=== PATIENT | male | born 1965 | race Caucasian/White ===

== ENCOUNTER 2021-11-08 13:00 | Outpatient (NON) | payer OTHER, SELFPAY | END 2021-11-09 08:05 | disposition home or self-care (01) | PROVIDERS: PCP Internal Medicine; Visit Provider Internal Medicine Gastroenterology | DX: R93.89 Abnormal findings on diagnostic imaging of other specified body structures (principal) | CPT/HCPCS: 88305 ==

== ENCOUNTER 2021-11-08 13:17 | Day surgery (SDC) | payer OTHER, SELFPAY ==
[2021-11-01 10:25] VITALS: BMI 23.1
[2021-11-04 10:00] VITALS: BMI 22.5
[2021-11-08 13:20] VITALS: BP 149/76; PULSE 92; RESP 20; TEMP 36.8; O2SAT 100
[2021-11-08 13:50] LABS: Glucose Point of Care 156 mg/dl (65-105)
--- NOTE | 2021-11-08 13:51 | SUR.PREOP ---
1315; CALLED TO WAITING ROOM TO ASSESS PT. PT SLUMPED OVER IN CHAIR. AxOX3. PT C/O LT FLANK PAIN AT 10/10. STATES I FEEL LIKE I'M GOING TO PASS OUT . STATES THIS HAS BEEN GOING ON FOR 3 HOURS. SISTER WITH PT. NOTIFIED KADE NG RN DIRECTOR. PT PLACED IN W/C AND TAKEN TO PREOP. ASSISTED TO LAY ON STRETCHER.
--- NOTE | 2021-11-08 13:56 | SUR.PREOP ---
1340; DR MARRERO NOTIFIED OF PT C/O EXTREME PAIN. LAST DOSE OF VICODIN WAS [address] MARRERO REQUEST[address] SCAN REPORT. WILL CALL DR HOYOS'S OFFICE FOR REPORT. 1347; RECEIVED REPORT. WAITING FOR DR MARRERO TO SEE REPORT, CURRENTLY IN ENDOSCOPY. SISTER AT BEDSIDE. PT ALERT AND AWAKE.
--- NOTE | 2021-11-08 14:10 | SUR.PREOP ---
1410; DR MARRERO IN ROOM SPEAKING TO PT. SISTER AT BEDSIDE.
--- NOTE | 2021-11-08 14:17 | SUR.PREOP ---
WILL CONTINUE WITH COLONOSCOPY
--- NOTE | 2021-11-08 14:18 | P.PNAN_ITS ---
Anes - Initial Pre Proc Eval Procedure: Operation Date: 11/08/21 14:15 Proposed Procedures p Diagnostic Colonoscopy - Roman Perry MD Date/Time: 11/08/21 14:18 Surgeon: Roman Perry MD Pre Op Diagnosis: Abnormal CT Scan Patient Data Age: 56 Gender: M Height: 1.73 m Weight: 67.132 kg Last Vital Signs Temp 36.8 C 11/08/21 13:20 Pulse 92 11/08/21 13:20 Resp 20 11/08/21 13:20 BP 149/76 H 11/08/21 13:20 Pulse Ox 100 11/08/21 13:20 O2 Del Method Room Air 11/08/21 13:20 Allergies Allergy/AdvReac Type Severity Reaction Status Date / Time codeine AdvReac Unknown stomach Verified 11/08/21 13:50 upset Home Medications Medication Instructions Recorded Confirmed Type albuterol sulfate 90 mcg/actuation 2 puff inhalation Q6H 11/04/21 11/08/21 History aerosol inhaler gabapentin 300 mg capsule 900 mg PO TID 11/04/21 11/08/21 History hydrocodone 7.5 mg-acetaminophen 1 tablet PO TID 11/04/21 11/08/21 History 325 mg tablet insulin aspart U-100 100 unit/mL See Rx Instructions .Route .COMPLEX 11/04/21 11/08/21 History (3 mL) subcutaneous pen (Novolog Flexpen U-100 Insulin aspart) Laboratory Tests 11/08/21 13:40 POC Capillary Glucose 156 mg/dl H mg/dl (65-105) Patient hx anesthesia problems: none Family hx anesthesia problems: none Results Review: All pre-operative results and documents have been reviewed as part of the pre- operative evaluation. [facility] Past Medical History Medical History (Updated 11/08/21 @ 14:19 by Morris Bustamante MD) Asthma Diabetes Family History Family History Father Family history of diabetes mellitus in first degree relative Family history of heart disease in male family member before age 55 Other Asthma Cerebrovascular accident Diabetes mellitus Family history of arthritis Family history of attention deficit hyperactivity disorder (ADHD) Hypertension Social History Social History Smoking packs per day: 1 Smoking cigarettes per day: 20.0 Years smoked: 35 Smoking pack-years: 35.00 Smoking status: Current every day smoker Tobacco type: cigarettes Alcohol intake: never Living arrangements: with family Spiritual care concerns: No Anes - Eval Final PreProcedure Day of Procedure 11/08/21 14:18 Patient weight: normal Heart: regular rate and rhythm Lungs: clear to auscultation Airway: Mallampati scale class II Neurological: alert and oriented Last oral intake: >/= 8 hours ASA classification: III Emergent: no Anesthetic plan: proceed Anesthesia type and monitoring: general GIVS and standard monitoring Results Review: All pre-operative results and documents have been reviewed as part of the pre- operative evaluation. Informed Consent: The patient's anesthetic plan and its attendant risks and benefits were discussed with the patient/family/POA. Questions were solicited and answers provided to the satisfaction of the patient/family/POA.
--- NOTE | 2021-11-08 14:31 | SUR.PREOP ---
PT STATES PAIN COMES AND GOES. WILL BE A STEADY PAIN THEN GETS AN INTENSE STABBING PAIN TO LT FLANKE
[2021-11-08] MEDS: LACTATED RINGERS 1,000 ML 150 ML IV CONT (14:32)
--- NOTE | 2021-11-08 14:33 | SUR.PREOP ---
PT WATCHING TV
[2021-11-08 15:27] VITALS: BP 123/76; PULSE 86; RESP 16; O2SAT 99
--- NOTE | 2021-11-08 15:35 | SUR.PHASEII ---
PT REMAINS SLEEPING, AROUSES TO VERBAL STIMULI, TOUCH. LAYING ON LT SIDE. SISTER AT BEDSIDE.
[2021-11-08 15:37] VITALS: BP 129/78; PULSE 82; RESP 16; O2SAT 98
--- NOTE | 2021-11-08 15:43 | WPDANESPN ---
Anes - Prog Note Post-Op Date/Time: 11/08/21 15:43 Cardiovascular status: normal Respiratory status: normal Airway patency: baseline Mental status: baseline Post-Op hydration status: normal Vital Signs: Last Vital Signs Temp 36.8 C 11/08/21 13:20 Pulse 86 11/08/21 15:27 Resp 16 11/08/21 15:27 BP 123/76 11/08/21 15:27 Pulse Ox 99 11/08/21 15:27 O2 Del Method Room Air 11/08/21 15:27 Pain Score (VAS): 3/10 I/O: Intake & Output 11/07/21 11/08/21 11/08/21 23:59 07:59 15:59 Intake Total 500 Balance 500 11/08/21 13:40 POC Capillary Glucose 156 H Patient Feedback: Patient satisfied with anesthetic care.
[2021-11-08 15:48] VITALS: BP 155/94; PULSE 88; RESP 18; O2SAT 98
--- NOTE | 2021-11-08 16:27 | WPDGICN ---
Assessment and Plan Assessment and plan (1) Abnormal CT scan, gastrointestinal tract: Code(s): R93.3 - Abnormal findings on diagnostic imaging of other parts of digestive tract Status: Acute Assessment and Plan: Patient has an abnormal CT scan raising question of cecal colon mass for this reason colonoscopy will be performed. Additionally as left flank pain is uncertain how this correlates with this discomfort. Further recommendations will be given after endoscopy. GI Consult Note Consult date/time: 11/08/21 16:27 Reason for consult: Abnormal CT scan HPI: Ankit Kemp is a 56 year old male presents for colonoscopy on referral from Dr. Krishna Leon. Patient reports severe left flank pain. He underwent a CT scan as an outpatient review revealed a cecal mass in also in the ascending colon. Patient referred for rather urgent colonoscopy. He states his bowel habits are fairly regular. He denies any blood in his stools. Notes a vague right lower quadrant discomfort but rather severe left flank discomfort. Patient referred for evaluation of abnormality seen on colonoscopy. He has no known family history of colon rectal disease. Review of Systems Review of Systems: Review of systems noncontributory. [facility] Past Medical History Medical History (Updated 11/08/21 @ 16:30 by Roman Perry MD) Asthma Diabetes Family History Family History Father Family history of diabetes mellitus in first degree relative Family history of heart disease in male family member before age 55 Other Asthma Cerebrovascular accident Diabetes mellitus Family history of arthritis Family history of attention deficit hyperactivity disorder (ADHD) Hypertension Social History Social History Smoking packs per day: 1 Smoking cigarettes per day: 20.0 Years smoked: 35 Smoking pack-years: 35.00 Smoking status: Current every day smoker Tobacco type: cigarettes Alcohol intake: never Spiritual care concerns: No Meds Home Medications and Allergies Home Medications Medication Instructions Recorded Confirmed Type albuterol sulfate 90 mcg/actuation 2 puff inhalation Q6H 11/04/21 11/08/21 History aerosol inhaler gabapentin 300 mg capsule 900 mg PO TID 11/04/21 11/08/21 History hydrocodone 7.5 mg-acetaminophen 1 tablet PO TID 11/04/21 11/08/21 History 325 mg tablet insulin aspart U-100 100 unit/mL See Rx Instructions .Route .COMPLEX 11/04/21 11/08/21 History (3 mL) subcutaneous pen (Novolog Flexpen U-100 Insulin aspart) Allergies Allergy/AdvReac Type Severity Reaction Status Date / Time codeine AdvReac Unknown stomach Verified 11/08/21 13:50 upset Vital Signs Vital Signs - 24 hr 11/08/21 13:20 11/08/21 15:27 11/08/21 15:37 Temperature 98.3 F Pulse Rate 92 86 82 Respiratory Rate 20 16 16 Blood Pressure 149/76 H 123/76 129/78 Pulse Oximetry 100 99 98 Oxygen Delivery Room Air Room Air Room Air Exam Narrative: Physical exam reveals patient to be alert. Vital signs stable. HEENT exam unremarkable. Patient anicteric. Lungs are clear. Heart without murmur. Abdomen bowel sounds present soft nontender no obvious masses or organomegaly. Digital external rectal exam normal.
--- NOTE | 2021-11-08 16:30 | HP_ITS ---
This report was recreated on November 10, 2021. Original report was signed by Dr. Roman Perry on November 08, 2021 at 16:30. Assessment and Plan Assessment and plan (1) Abnormal CT scan, gastrointestinal tract: Code(s): R93.3 - Abnormal findings on diagnostic imaging of other parts of digestive tract Status: Acute Assessment and Plan: Patient has an abnormal CT scan raising question of cecal colon mass for this reason colonoscopy will be performed. Additionally as left flank pain is uncertain how this correlates with this discomfort. Further recommendations will be given after endoscopy. GI Consult Note Consult date/time: 11/08/21 16:27 Reason for consult: Abnormal CT scan HPI: Ankit Kemp is a 56 year old male presents for colonoscopy on referral from Dr. Krishna Leon. Patient reports severe left flank pain. He underwent a CT scan as an outpatient review revealed a cecal mass in also in the ascending colon. Patient referred for rather urgent colonoscopy. He states his bowel habits are fairly regular. He denies any blood in his stools. Notes a vague right lower quadrant discomfort but rather severe left flank discomfort. Patient referred for evaluation of abnormality seen on colonoscopy. He has no known family history of colon rectal disease. Review of Systems Review of Systems: Review of systems noncontributory. [facility] Past Medical History Medical History (Updated 11/08/21 @ 16:30 by Roman Perry MD) Asthma Diabetes Family History Family History Father Family history of diabetes mellitus in first degree relative Family history of heart disease in male family member before age 55 Other Asthma Cerebrovascular accident Diabetes mellitus Family history of arthritis Family history of attention deficit hyperactivity disorder (ADHD) Hypertension Social History Social History Smoking packs per day: 1 Smoking cigarettes per day: 20.0 Years smoked: 35 Smoking pack-years: 35.00 Smoking status: Current every day smoker Tobacco type: cigarettes Alcohol intake: never Spiritual care concerns: No Meds Home Medications and Allergies Home Medications Medication Instructions Recorded Confirmed Type albuterol sulfate 90 mcg/actuation 2 puff inhalation Q6H 11/04/21 11/08/21 History aerosol inhaler gabapentin 300 mg capsule 900 mg PO TID 11/04/21 11/08/21 History hydrocodone 7.5 mg-acetaminophen 1 tablet PO TID 11/04/21 11/08/21 History 325 mg tablet insulin aspart U-100 100 unit/mL See Rx Instructions .Route .COMPLEX 11/04/21 11/08/21 History (3 mL) subcutaneous pen (Novolog Flexpen U-100 Insulin aspart) Allergies Allergy/AdvReac Type Severity Reaction Status Date / Time codeine AdvReac Unknown stomach Verified 11/08/21 13:50 upset Vital Signs Vital Signs - 24 hr 11/08/21 13:20 11/08/21 15:27 11/08/21 15:37 Temperature 98.3 F Pulse Rate 92 86 82 Respiratory Rate 20 16 16 Blood Pressure 149/76 H 123/76 129/78 Pulse Oximetry 100 99 98 Oxygen Delivery Room Air Room Air Room Air Exam Narrative: Physical exam reveals patient to be alert. Vital signs stable. HEENT exam unremarkable. Patient anicteric. Lungs are clear. Heart without murmur. Abdomen bowel sounds present soft nontender no obvious masses or organomegaly. Digital external rectal exam normal.
--- NOTE | 2021-11-08 16:32 | SUR.PHASEII ---
1545; PT AWAKE AND ALERT. STATES NO PAIN RIGHT NOW, BUT I KNOW IT WILL RETURN . PT TOOK A PAIN PILL FROM HIS OWN BOTTLE HE BROUGHT FROM HOME. INSTRUCTED PT AND SISTER IF PAIN PERSISTS HE SHOULD REPORT TO ED.
== END 2021-11-08 16:25 | disposition home or self-care (01) ==
PROVIDERS: PCP Internal Medicine; Visit Provider Internal Medicine Gastroenterology
PROC: 0DJD8ZZ Inspection of Lower Intestinal Tract, Via Natural or Artificial Opening Endoscopic (ICD-10-PCS; CPT 45378; principal; 2021-11-08 14:15)
DX: R93.3 Abnormal findings on diagnostic imaging of other parts of digestive tract (principal)
CPT/HCPCS: 45380

== ENCOUNTER 2021-11-21 07:51 | Outpatient (CLI) | payer OTHER, SELFPAY ==
--- NOTE | 2021-11-21 08:55 | ECG_ITS ---
Measurements Intervals [place] Rate: 84 P: 75 VA: 154 QRS: 55 QRSD: 96 T: 64 QT: 345 QTc: 409 Interpretive Statements SINUS RHYTHM NORMAL ELECTROCARDIOGRAM NO PREVIOUS ECG AVAILABLE FOR COMPARISON Electronically Signed On 11-21-2021 14:31:34 CDT by Tong Miller M.D.
[2021-11-21 09:42] LABS: Anion Gap 7 mmol/L (8-16); Blood Urea Nitrogen 13 mg/dL (9-20); Calcium 9.1 mg/dL (8.4-10.2); Carbon Dioxide 27 mmol/L (22-30); Chloride 101 mmol/L (98-107); Estimated Glomerular Filt Rate > 60; Glucose 177 mg/dL (65-110); Potassium 4.3 mmol/L (3.4-5.0); Sodium 135 mmol/L (137-145)
== END 2021-11-21 07:52 | disposition home or self-care (01) ==
LOC: ANHSURGERY 07:55
PROVIDERS: Anesthesiology; PCP Internal Medicine; Visit Provider Surgery
DX: Z01.818 Encounter for other preprocedural examination (principal); C18.0 Malignant neoplasm of cecum; E10.9 Type 1 diabetes mellitus without complications
CPT/HCPCS: 36415; 80048; 86850; 86900; 86901; 93005

== ENCOUNTER 2021-11-25 17:28 | Inpatient (IN) | payer OTHER, SELFPAY ==
[2021-11-21 08:00] VITALS: BMI 24.0
--- NOTE | 2021-11-21 08:29 | PC.NURSE ---
Report to the Outpatient Waiting Room, entrance under the green pavilion located off [facility], at time __1000 on date _11/25/21 . OR Time: _1200 . - You and your visitor will be asked a series of questions to screen for COVID 19 for your protection. - Only one visitor is allowed at this time. - The patient visitor is requested to leave or wait in car when not with patient. - A mask is required within the hospital. Patients may have clear liquids (water, carbonated beverages, clear teas, apple juice) until 3 hours prior to surgery with a maximum of 20 ounces. - No food from midnight until time of surgery - Infants may have breast milk until 4 hours before surgery, infant formula 6 hours prior to surgery. - Children will be allowed to drink immediately following surgery. If applicable, please bring a bottle or sippy cup to assist with drinking. Juice, water, soda, and popsicles are readily available. For infants on formula, please bring formula the day of surgery. Pacifiers are allowed. Take the following medications with a SIP of water the morning of surgery: ___PAIN PILL IF NEEDED Medications to discontinue per physician ___NONE Date to take last dose Please no make-up, nail japanese, hairspray, perfume, deodorant, or body powder the day of surgery. No jewelry (including any body piercings) or valuables the day of surgery, leave them at home. Please take a shower or bath the night before, or the morning of, surgery with an antibacterial soap. Wear comfortable, loose fitting clothing. Children are encouraged to wear pajamas. - Jewelry must be removed prior to entering the operating room. Rings and piercings that are not removed may be cut off. - The hospital will not accept responsibility for valuables. - Please leave all valuables, including medications, at home the day of surgery.HIBICLENS SHOWER DAY BEFORE SURGERY AND MORNING OF SURGERY BOWEL PREP/ENSURE BUNDLE PACK PER DR FAITH If you are going home after surgery, a licensed peg driver must drive you home. - NO public transportation without another adult. - We recommend that an adult stay with you for 24 hours following discharge. - We also recommend that you do not drive, make important decision, drink alcoholic beverages, or take any drugs that were not prescribed by your health care provider for at least 24 hours after your discharge time. For Pediatric surgeries, we recommend two adults accompany the child home (only one inside the building at this time). Follow any additional instructions given to you from your surgeon. If you or anyone in your household have experienced Covid symptoms in the past week, please notify your surgeon or the nurse liaison at the phone number below for possible testing. VERBAL AND WRITTEN instructions given to __PATIENT and asked if any additional questions and then verbalized understanding. Patient advised to call surgeon office or pre surgery nurse liaison [phone] if any additional questions.
[2021-11-21 08:47] VITALS: BP 128/74; PULSE 85; RESP 18; TEMP 36.9; O2SAT 99
--- NOTE | 2021-11-24 13:41 | WPDANESEPPF ---
Anes - Initial Pre Proc Eval Procedure: Operation Date: 11/25/21 12:00 Proposed Procedures p Laparoscopic Right Hemicolectomy, Davinci Assisted - Tyrell Garcia DO Date/Time: 11/24/21 13:41 Surgeon: Tyrell Garcia DO Pre Op Diagnosis: cecal CA Patient Data Age: 56 Gender: M Height: 1.73 m Weight: 71.9 kg Last Vital Signs Temp 36.9 C 11/21/21 08:47 Pulse 85 11/21/21 08:47 Resp 18 11/21/21 08:47 BP 128/74 11/21/21 08:47 Pulse Ox 99 11/21/21 08:47 O2 Del Method Room Air 11/21/21 08:47 Allergies Allergy/AdvReac Type Severity Reaction Status Date / Time codeine AdvReac Unknown stomach Verified 11/25/21 10:06 upset Home Medications Medication Instructions Recorded Confirmed Type albuterol sulfate 90 mcg/actuation 2 puff inhalation PRN PRN 11/04/21 11/25/21 History aerosol inhaler Shortness Of Breath hydrocodone 7.5 mg-acetaminophen 1 tablet PO QID 11/04/21 11/25/21 History 325 mg tablet insulin aspart U-100 100 unit/mL See Rx Instructions .Route .COMPLEX 11/04/21 11/25/21 History (3 mL) subcutaneous pen (Novolog Flexpen U-100 Insulin aspart) insulin glargine 100 unit/mL 14 - 20 unit subcut BID 11/09/21 11/25/21 History subcutaneous solution (Lantus U-100 Insulin) erythromycin 500 mg tablet See Rx Instructions .Route 11/14/21 11/25/21 Rx .COMPLEX #6 tabs neomycin 500 mg tablet See Rx Instructions .Route 11/14/21 11/25/21 Rx .COMPLEX #6 tabs rosuvastatin 10 mg tablet 10 mg PO DAILY 11/21/21 11/25/21 History Patient hx anesthesia problems: none Family hx anesthesia problems: none Results Review: All pre-operative results and documents have been reviewed as part of the pre-operative evaluation. [facility] Past Medical History Medical History (Updated 11/24/21 @ 13:42 by Bernard Guerrero DO) Asthma Cecal cancer Chronic pain Diabetes type 1 High cholesterol Surgical History Surgical History History of thumb surgery S/P carpal tunnel release S/P laparoscopic cholecystectomy Family History Family History Father Family history of diabetes mellitus in first degree relative Family history of heart disease in male family member before age 55 Other Asthma Cerebrovascular accident Diabetes mellitus Family history of arthritis Family history of attention deficit hyperactivity disorder (ADHD) Hypertension Social History Social History Smoking packs per day: 1 Smoking cigarettes per day: 20.0 Years smoked: 35 Smoking pack-years: 35.00 Smoking status: Current every day smoker Tobacco type: cigarettes Alcohol intake: current Substance use type: marijuana Last use: 11/20/21 HELPS WITH HIS ANXIETY/PAIN Living arrangements: alone Spiritual care concerns: No Anes - Eval Final PreProcedure Day of Procedure 11/24/21 13:41 Patient weight: normal Heart: regular rate and rhythm Lungs: clear to auscultation Airway: Mallampati scale class II Neurological: alert and oriented Last oral intake: >/= 8 hours ASA classification: III Emergent: no Anesthetic plan: proceed Anesthesia type and monitoring: general GIVS and standard monitoring Results Review: All pre-operative results and documents have been reviewed as part of the pre-operative evaluation. Informed Consent: The patient's anesthetic plan and its attendant risks and benefits were discussed with the patient/family/POA. Questions were solicited and answers provided to the satisfaction of the patient/family/POA.
[2021-11-25] VITALS (9 sets, daily range): BP systolic 130–164; BP diastolic 73–87; PULSE 73–117; RESP 12–20; TEMP 36.1–36.4; O2SAT 97–100
[2021-11-25 10:31] LABS: Glucose Point of Care 74 mg/dl (65-105)
[2021-11-25] MEDS: ACETAMINOPHEN 500 MG TABLET 1000 MG PO (10:34)
[2021-11-25] MEDS: LACTATED RINGERS 1,000 ML 30 ML IV CONT ×2 (10:34→16:04)
[2021-11-25] MEDS: KETOROLAC 15 MG/ML VIAL (*BKC) IV PUSH (10:35)
--- NOTE | 2021-11-25 11:37 | WPDHPUPDATE1 ---
History and Physical Update Update Date/Time: 11/25/21 11:37 History and Physical has been reviewed, including an updated exam of the patient. There are NO changes in the patient's condition. Risks, benefits, and alternatives have been discussed and questions answered. Patient agrees to proceed with procedure.
[2021-11-25] MEDS: ceFAZolin 2 GM/D5W 50 ML 2 GM/50 ML BAG IVPB (12:07)
[2021-11-25] MEDS: fentaNYL CITRATE INJ (*CRX) 100 MCG/2 ML VIAL 25 MCG IV PUSH ×6 (16:20→17:07)
--- NOTE | 2021-11-25 16:22 | W.PM.PROC2 ---
Procedure Note - Detailed Date of Procedure 11/25/21 Pre-op Diagnosis Cecal Cancer Post-op Diagnosis Same Procedure Performed Laparoscopic right hemicolectomy with [id number] ileocolic anastomosis, da Sharee assisted Surgeon Tyrell Garcia, Anesthesia General and Local (Exparel) Indications This is a 56-year-old man who presents with adenocarcinoma of the cecum. He was experiencing some lower abdominal pain and had a CT abdomen/ pelvis done at an outside facility which showed evidence of a mass in the cecum. He then underwent colonoscopy by Dr. Perry on 11/08/2021. A mass was identified and biopsied and these biopsy showed evidence of adenocarcinoma. His preoperative CEA level was 61.8. He had no evidence of distant metastases on the CT. Discussions were made with the patient about treatment options and decision was made to proceed with a robotic assisted laparoscopic right hemicolectomy. Findings Robotic assisted laparoscopic right hemicolectomy was performed. The mass was identified in the cecum. There was no evidence of distant metastases on careful examination. A high ligation of the ileocolic pedicle was performed. After mobilizing the entire ascending colon I then resected the right colon and performed a [id number] isoperistaltic intracorporeal anastomosis. Indocyanine green was used to assess perfusion to the bowel both before resection and after anastomosis. The bowel appeared healthy and viable and the anastomosis appeared widely patent. The right colon was extracted through a low Pfannenstiel incision using a small Nate wound protector. Description of Procedure Procedure as well as risks, benefits, and alternatives were discussed with the patient. Written consent was obtained and placed in chart prior to procedure. Patient was brought back to surgical suite. He was placed supine on operating table. Time-out was done to confirm patient and procedure. He was then intubated by the anesthesia department. His abdomen was prepped and draped in sterile fashion using chlorhexidine prep. An 8 mm incision was made in the left upper quadrant and a 5 mm Optiview trocar was advanced through the abdominal layers under direct visualization. Once inside the abdominal cavity, carbon dioxide insufflation was used to create a pneumoperitoneum. Camera was inserted in the abdomen was inspected. The patient was placed in 5 degree Trendelenburg and 10? rotated left an 8 mm incision was made in the suprapubic region in midline and an 8 mm trocar was inserted under direct visualization another 8 mm incision was made in the umbilical region just inferior into the left of the umbilicus and an 8 mm trocar was inserted under direct visualization. A 12 mm incision was made in the left lateral abdomen and a 12 mm trocar was inserted under direct visualization. An 8 mm incision was made in the left lower quadrant and an 8 mm assist port was placed under direct visualization. The 5 mm port was then removed and exchanged for an 8 mm port. The robotic arms were then brought up to the patient's bedside and secured to the ports. The camera and instruments were then inserted. I then moved over to the robotic console and took control of the camera and instruments. Thorough inspection was made around the abdominal cavity. The omentum was then reflected cephalad over the transverse colon. The area near the ileocecal valve was grasped and retracted anterior and laterally to tent up the ileocolic pedicle. Scissors with electrocautery were then used to perform the medial to lateral dissection. I entered into the avascular plane just inferior to the ileocolic pedicle and carefully dissected cephalad to identify the duodenum. Once the duodenum was identified and then continued sweeping the retroperitoneal structures posteriorly and then isolated the ileocolic pedicle. A high ligation of the ileocolic vessels was then performed using the vessel sealer. Sri
--- NOTE | 2021-11-25 17:13 | SUR.PHASEI ---
1710 - tarsha tamayo on pt.
--- NOTE | 2021-11-25 17:35 | ADMGEN ---
This patient, Ankit Kemp, was admitted to Medical Room 248-01. Patient/family oriented to hospital policies and general routines including ID bracelet, bed and alarms, visiting hours, pain management, procedures, bathroom and other care routines, personal items, smoking policy, room service/diet, and visiting hours. Information on how to activate the Rapid Response Team has been discussed. Patient/Family are encouraged to report perceived risks to care and to ask questions if they do not understand what they are told or what they should do.
[2021-11-25] MEDS: LACTATED RINGERS 1,000 ML 100 ML IV CONT (18:03)
[2021-11-25] MEDS: oxyCODONE HCL (*CRX) 5 MG TAB IR 10 MG PO ×2 (18:08→22:18)
[2021-11-25 18:18] LABS: Glucose Point of Care 193 mg/dl (65-105)
--- NOTE | 2021-11-25 19:30 | WPDCN ---
Assessment and Plan Assessment and plan (1) Adenocarcinoma of cecum: Code(s): C18.0 - Malignant neoplasm of cecum Status: Acute Assessment and Plan: Postoperative day 0 status post right hemicolectomy with [id number]-lx-cole ileocolic anastomosis. Wound care, pain control, and DVT prophylaxis deferred to Dr. Garcia. (2) Insulin dependent type 2 diabetes mellitus: Code(s): E11.9 - Type 2 diabetes mellitus without complications; Z79.4 - terminal system operator (current) use of insulin Status: Acute Assessment and Plan: Continue basal insulin at a reduced dose while NPO. Initiate sliding scale insulin, Accu-Cheks, and hypoglycemic protocol. Recheck hemoglobin A1c. (3) Tobacco abuse: Code(s): Z72.0 - Tobacco use Status: Acute Assessment and Plan: Smoking cessation is encouraged. He declines the need for nicotine patch at this time. Plan Thank you for allowing us to participate in this patient's care. Please do not hesitate to contact us with any questions. Supervising physician for this medical consultation is Dr. Tong Sidhu. HPI Data of Consult Date/Time: 11/25/21 19:30 Requesting Physician: Tyrell Garcia DO Consult Narrative Reason for consult: Postoperative medical management. Narrative: This is a pleasant 56-year-old male smoker with insulin dependent diabetes mellitus, dyslipidemia, and a recent diagnosis of adenocarcinoma of the cecum whom the hospitalist service has been consulted for help managing the patients medical conditions postoperatively. He was found to have evidence of a cecal mass on CT of the abdomen and pelvis last month done at an outside facility for evaluation of lower back and abdominal pain. He underwent colonoscopy on 11/08/[address] Perry at which time he was found to have a malignant appearing mass in the cecum. Biopsy confirmed moderately differentiated adenocarcinoma and he is now status post laparoscopic right hemicolectomy with [id number] anastamosis, da Sharee assisted per Dr. Garcia. At the time my evaluation he is resting comfortably does have some discomfort at the incisional sites. His main complaint is that of the need to urinate however he has only been able to produce a very small amount of urine. He does not typically have issues urinating. He denies fever, chills, sweats, chest pain, shortness of breath, nausea, and vomiting. Review of Systems Review of Systems: Twelve systems were reviewed. He has lost about 40 lb unintentionally over the last 1 year. No fever, chills, or sweats. No recent cold or flu symptoms. No sick contacts. No chest or pleuritic pain. No shortness of breath. He has not noticed any bright red blood or dark stools. No history of venous thromboembolism. He admits that his diabetes is not well controlled with his most recent A1c of around 13%. No blurry vision, polydipsia, or polyuria. Except as documented, all other systems were reviewed and are negative. [facility] Past Medical History Medical History (Updated 11/25/21 @ 23:18 by Etelvina Vegas PA-C) Adenocarcinoma of cecum Asthma Chronic pain Dyslipidemia Insulin dependent type 2 diabetes mellitus Surgical History Surgical History (Updated 11/25/21 @ 23:15 by Etelvina Vegas PA-C) History of carpal tunnel release History of laparoscopic cholecystectomy (05/2012) History of right hemicolectomy (11/25/21) Laparoscopic right hemicolectomy with [id number] ileocolic anastomosis per Dr. Garcai for adenocarcinoma of the cecum. History of thumb surgery Family History Family History Father Family history of diabetes mellitus in first degree relative Family history of heart disease in male family member before age 55 Other Asthma Cerebrovascular accident Diabetes mellitus Family history of arthritis Family history of attention deficit hyperactivity disorder (ADHD) Hypertens
[2021-11-25] MEDS: oxyCODONE HCL (*CRX) 5 MG TAB IR PO (19:57)
[2021-11-25 22:32] LABS: Glucose Point of Care 293 mg/dl (65-105)
[2021-11-25 22:32] LABS: Glucose Point of Care 245 mg/dl (65-105)
[2021-11-25] MEDS: INSULIN ASPART (*BKC) 100 UNITS/ML 6 UNITS SUB-Q (23:25)
[2021-11-25] MEDS: INSULIN GLARGINE (*BKC) 100 UNITS/ML 15 UNITS SUB-Q (23:42)
[2021-11-26 00:32] VITALS: BP 116/75; PULSE 103; RESP 20; TEMP 36.8; O2SAT 98
[2021-11-26 00:55] LABS: Glucose Point of Care 283 mg/dl (65-105)
[2021-11-26 00:55] LABS: Glucose Point of Care 269 mg/dl (65-105)
[2021-11-26] MEDS: oxyCODONE HCL (*CRX) 5 MG TAB IR PO (01:28)
--- NOTE | 2021-11-26 01:36 | PC.NURSE ---
PT C/O LEFT SHOULDER PAIN PROVIDED PT WITH ICE PACK UPON REQUEST.
[2021-11-26] MEDS: oxyCODONE HCL (*CRX) 5 MG TAB IR 10 MG PO (03:56)
[2021-11-26] MEDS: LACTATED RINGERS 1,000 ML 100 ML IV CONT (03:56)
[2021-11-26 05:45] VITALS: BP 118/82; PULSE 106; RESP 20; TEMP 36.2; O2SAT 98
[2021-11-26 06:12] LABS: Glucose Point of Care 253 mg/dl (65-105)
[2021-11-26] MEDS: HYDROmorphone HCL INJ (*CRX) 1 MG/ML SYR IV PUSH ×5 (06:13→22:42)
[2021-11-26 06:23] LABS: Basophils Percent Auto 0.2 % (0.2-1.2); Hematocrit 29.5 % (42.0-52.0); Immature Granulocyte Absolute 0.05 K/mm3 (0.00-0.031); Immature Granulocyte Percent A 0.4 % (0-0.5); Lymphocytes Absolute Auto 1.29 K/mm3 (0.9-3.2); Lymphocytes Percent Auto 10.3 % (18.3-44.2); Mean Corpuscular HGB Conc 30.5 g/dl (32-36); Mean Corpuscular Hemoglobin 24.5 pg (26-34); Mean Corpuscular Volume 80.2 fl (80-100); Mean Platelet Volume 8.8 fl (7.4-10.4); Monocytes Percent Auto 7.7 % (2.6-8.5); Neutrophils Absolute Auto 10.2 K/mm3 (1.3-6.7); Neutrophils Percent Auto 81.4 % (45.5-73.1); Platelet Count Result 499 k/mm3 (150-375); Red Blood Count 3.68 M/mm3 (4.6-6.20); Red Cell Distribution Width 14.7 % (11.5-14.5); White Blood Count 12.5 K/mm3 (4.5-10.0)
[2021-11-26 06:40] LABS: Hemoglobin A1C 9.4 % (<5.7)
[2021-11-26 06:41] LABS: Alanine Aminotransferase 14 U/L (6-50); Albumin Level 3.3 g/dL (3.5-5.1); Alkaline Phosphatase 73 U/L (38-126); Anion Gap 9 mmol/L (8-16); Aspartate Amino Transferase 28 U/L (17-59); Bilirubin,Total 0.4 mg/dL (0.2-1.3); Blood Urea Nitrogen 18 mg/dL (9-20); Calcium 8.3 mg/dL (8.4-10.2); Carbon Dioxide 25 mmol/L (22-30); Chloride 96 mmol/L (98-107); Estimated CRCL calculation 89 ml/min; Estimated Glomerular Filt Rate > 60; Glucose 273 mg/dL (65-110); Magnesium 1.9 mg/dL (1.6-2.3); Potassium 5.1 mmol/L (3.4-5.0); Sodium 130 mmol/L (137-145)
[2021-11-26 08:12] LABS: Glucose Point of Care 259 mg/dl (65-105)
[2021-11-26] MEDS: INSULIN ASPART (*BKC) 100 UNITS/ML SUB-Q ×2 (08:47→12:17)
[2021-11-26] MEDS: ROSUVASTATIN 10 MG TABLET PO (09:28)
[2021-11-26] MEDS: ENOXAPARIN 40 MG/0.4 ML SYRINGE SUB-Q (09:29)
--- NOTE | 2021-11-26 10:00 | PM.PNGS ---
Progress Note: A&P Assessment and Plan (1) Adenocarcinoma of cecum: Code(s): C18.0 - Malignant neoplasm of cecum Status: Acute Assessment and Plan: doing well, ADAT, encourage OOB/IS, add Toradol for pain, await path Subjective Subjective Date/Time Seen: 11/26/21 10:00 feels ok, c/o significant incisional soreness, emmett clears, has been able to ambulate Review of Systems Review of Systems: All systems reviewed & are unremarkable except as noted in HPI and below Exam Const: General: cooperative and no acute distress Resp: Auscultation: clear to auscultation bilaterally Cardio: Rate: regular rate Rhythm: regular rhythm GI: Inspection: normal to inspection, distended and incision GI Palp: Yes abdominal tenderness, Yes Soft to palpation, Yes Tenderness to palpation present (GI), No Guarding due to palpation present (GI) and No Rigid due to palpation Objective Data Vital Signs Vital Signs: Vital Signs - 24 hr 11/25/21 10:38 11/25/21 16:04 11/25/21 16:17 Temperature 36.4 C L 36.4 C Pulse Rate 117 H 91 77 Respiratory Rate 16 18 13 Blood Pressure 130/73 157/78 H 162/85 H Pulse Oximetry 100 100 100 Oxygen Delivery Room Air Simple Face Mask Simple Face Mask Oxygen Flow Rate 7 7 11/25/21 16:29 11/25/21 16:45 11/25/21 16:59 Temperature Pulse Rate 78 75 73 Respiratory Rate 15 14 12 Blood Pressure 164/87 H 150/85 H 155/81 H Pulse Oximetry 100 100 99 Oxygen Delivery Simple Face Mask Simple Face Mask Room Air Oxygen Flow Rate 7 7 11/25/21 17:13 11/25/21 18:29 11/25/21 20:05 Temperature 36.1 C L Pulse Rate 73 117 H Respiratory Rate 12 20 Blood Pressure 143/79 H 141/77 H Pulse Oximetry 99 97 99 Oxygen Delivery Room Air Room Air Oxygen Flow Rate 11/25/21 20:00 11/26/21 00:32 11/26/21 05:45 Temperature 36.8 C 36.2 C L Pulse Rate 103 H 106 H Respiratory Rate 20 20 Blood Pressure 116/75 118/82 Pulse Oximetry 98 98 Oxygen Delivery Room Air Oxygen Flow Rate Intake/Output Intake/Output: Intake & Output 08/1011/24/21 11/25/21 11/26/21 23:59 23:59 23:59 23:59 Intake Total 500 1920 Output Total 400 300 Balance 100 1620 Meds/Results Medications: Active Medications Generic Name Dose Route Start Last Admin Trade Name Freq PRN Reason Stop Dose Admin Acetaminophen 1,000 mg 11/25/21 17:28 Acetaminophen 500 Mg Tablet PO Q6H PRN Mild Pain (1-3) or Fever Albuterol 2 puff 11/25/21 17:28 Albuterol Sulfate (*Sp) Aerosol 1 Puff INHALATION PRN PRN Shortness Of Breath Dextrose 12.5 gm 11/25/21 23:11 Dextrose 50% 25 Gm/50 Ml Syringe IV PUSH PRN PRN Hypoglycemia Protocol Enoxaparin Sodium 40 mg 11/26/21 09:00 11/26/21 09:29 Enoxaparin 40 Mg/0.4 Ml Syringe SUB-Q 40 mg DAILY KAREY Administration Glucagon 1 mg 11/25/21 23:11 Glucagon For Inj 1 Mg Vial IM PRN PRN Hypoglycemia Protocol Glucose 15 gm 11/25/21 23:11 Glucose Oral Gel 15 Gm Of Glucse In 37.5 Gm Tube PO PRN PRN Hypoglycemia Protocol Hydromorphone HCl 1 mg 11/25/21 17:28 11/26/21 09:26 Hydromorphone Hcl Inj (*Crx) 1 Mg/Ml Syr IV PUSH 1 mg Q2H PRN Administration Pain Rated 7-10 Hydromorphone HCl 0.5 mg 11/25/21 17:28 Hydromorphone Hcl Inj (*Crx) 1 Mg/Ml Syr IV PUSH Q2H PRN Pain Rated 4-6 Lactated Ringer's 1,000 mls @ 100 mls/hr 11/25/21 17:28 11/26/21 03:56 Lr - Lactated Ringers Iv IV CONT 100 mls/hr .Q10H KAREY Administration Dextrose 1,000 mls @ 100 mls/hr 11/25/21 23:11 Dextrose 5% 1,000 Ml IVPB PRN PRN Hypoglycemia Protocol Insulin Aspart 3 - 6 units 11/26/21 08:00 11/26/21 08:47 Insulin Aspart (*Bkc) 100 Units/Ml SUB-Q 4 units TIDWM KAREY Administration Protocol Insulin Glargine 15 units 11/25/21 23:40 11/25/21 23:42 Insulin Glargine (*Bkc) 100 Units/Ml SUB-Q 15 units [facility] Administrati
[2021-11-26 10:04] VITALS: BP 124/68; PULSE 112; RESP 20; TEMP 37.2; O2SAT 95
[2021-11-26 12:13] LABS: Glucose Point of Care 294 mg/dl (65-105)
[2021-11-26] MEDS: KETOROLAC 30 MG/ML VIAL (*BKC) IV PUSH ×3 (12:23→23:55)
[2021-11-26 13:08] LABS: Potassium 4.4 mmol/L (3.4-5.0)
--- NOTE | 2021-11-26 14:05 | PM.IMPN ---
Progress Note: A&P Assessment and Plan (1) Adenocarcinoma of cecum: Code(s): C18.0 - Malignant neoplasm of cecum Status: Acute Assessment and Plan: Postoperative day 1 status post right hemicolectomy with [id number] ileocolic anastomosis. Wound care, pain control, and DVT prophylaxis deferred to Dr. Garcia. Full liquid diet (2) Insulin dependent type 2 diabetes mellitus: Code(s): E11.9 - Type 2 diabetes mellitus without complications; Z79.4 - half-way (current) use of insulin Status: Acute Assessment and Plan: A1c is 9.4. Blood sugars have been elevated above target Continue accu-Cheks, high dose sliding scale insulin, and hypoglycemic protocol. Increase Lantus to 18 untis qHS Monitor glucose trends (3) Tobacco abuse: Code(s): Z72.0 - Tobacco use Status: Acute Assessment and Plan: Smokes 1 pack per day Smoking cessation is encouraged. He declined the need for nicotine patch Plan Subjective Date/time seen: 11/26/21 14:05 Interval history: Date of service: 11/26/2021 Ankit Kemp is a 56-year-old male with a history of type 2 diabetes mellitus, hyperlipidemia, asthma, and adenocarcinoma of cecum s/p laparoscopic right hemicolectomy with ileocolic anastomosis. He is feeling okay today. He describes diffuse abdominal pain that is a constant throbbing/ache with intermittent sharp stabbing pains. He states his pain is 10/10. He feels short of breath due to the pain and cannot take deep breaths. He denies nausea or vomiting. He is passing flatus but has not had a bowel movement. Tolerating full liquids. He was able to get out of bed today and seemed to do well with this. He denies dizziness, lightheadedness, weakness. No cough, chest pain, palpitations. Denies dysuria. Review of Systems Review of Systems: All systems reviewed & are unremarkable except as noted in HPI and below Objective Data Vital Signs Vital Signs: Vital Signs - 24 hr 11/25/21 16:04 11/25/21 16:17 11/25/21 16:29 Temperature 97.6 F Pulse Rate 91 77 78 Respiratory Rate 18 13 15 Blood Pressure 157/78 H 162/85 H 164/87 H Pulse Oximetry 100 100 100 Oxygen Delivery Simple Face Mask Simple Face Mask Simple Face Mask Oxygen Flow Rate 7 7 7 11/25/21 16:45 11/25/21 16:59 11/25/21 17:13 Temperature Pulse Rate 75 73 73 Respiratory Rate 14 12 12 Blood Pressure 150/85 H 155/81 H 143/79 H Pulse Oximetry 100 99 99 Oxygen Delivery Simple Face Mask Room Air Room Air Oxygen Flow Rate 7 11/25/21 18:29 11/25/21 20:05 11/25/21 20:00 Temperature 97.0 F L Pulse Rate 117 H Respiratory Rate 20 Blood Pressure 141/77 H Pulse Oximetry 97 99 Oxygen Delivery Room Air Room Air Oxygen Flow Rate 11/26/21 00:32 11/26/21 05:45 11/26/21 10:04 Temperature 98.2 F 97.1 F L 98.9 F Pulse Rate 103 H 106 H 112 H Respiratory Rate 20 20 20 Blood Pressure 116/75 118/82 124/68 Pulse Oximetry 98 98 95 Oxygen Delivery Oxygen Flow Rate Intake/Output Intake/Output: Intake & Output 11/23/21 11/24/21 11/25/21 11/26/21 23:59 23:59 23:59 23:59 Intake Total 500 1920 Output Total 400 300 Balance 100 1620 Meds/Results Medications: Active Medications Generic Name Dose Route Start Last Admin Trade Name Freq PRN Reason Stop Dose Admin Acetaminophen 1,000 mg 11/25/21 17:28 Acetaminophen 500 Mg Tablet PO Q6H PRN Mild Pain (1-3) or Fever Albuterol 2 puff 11/25/21 17:28 Albuterol Sulfate (*Sp) Aerosol 1 Puff INHALATION PRN PRN Shortness Of Breath Dextrose 12.5 gm 11/25/21 23:11 Dextrose 50% 25 Gm/50 Ml Syringe IV PUSH PRN PRN Hypoglycemia Protocol Enoxaparin Sodium 40 mg 11/26/21 09:00 11/26/21 09:29 Enoxaparin 40 Mg/0.4 Ml Syringe SUB-Q 40 mg DAILY KAREY Administration Glucagon 1 mg 11/25/21 23:11 Glucagon For Inj 1 Mg Vial IM PRN PRN Hypoglycemia
[2021-11-26 14:34] VITALS: BP 132/76; PULSE 90; RESP 18; TEMP 36.6; O2SAT 98
[2021-11-26] MEDS: LACTATED RINGERS 1,000 ML 75 ML IV CONT (14:42)
[2021-11-26 17:13] LABS: Glucose Point of Care 156 mg/dl (65-105)
[2021-11-26] MEDS: INSULIN GLARGINE (*BKC) 100 UNITS/ML 18 UNITS SUB-Q (21:13)
[2021-11-26 21:22] LABS: Glucose Point of Care 245 mg/dl (65-105)
[2021-11-26 22:43] VITALS: BP 148/89; PULSE 109; RESP 20; TEMP 36.2; O2SAT 98
[2021-11-26] MEDS: MELATONIN 5 MG TABLET PO (22:45)
[2021-11-27] VITALS (8 sets, daily range): BP systolic 111–127; BP diastolic 51–62; PULSE 72–107; RESP 16–21; TEMP 36.2–36.9; O2SAT 96–100
[2021-11-27] MEDS: HYDROmorphone HCL INJ (*CRX) 1 MG/ML SYR IV PUSH ×5 (00:32→17:42)
[2021-11-27 00:38] LABS: Glucose Point of Care 215 mg/dl (65-105)
[2021-11-27] MEDS: LACTATED RINGERS 1,000 ML 75 ML IV CONT (04:02)
[2021-11-27 05:39] LABS: Hematocrit 22.7 % (42.0-52.0); Mean Corpuscular HGB Conc 30.4 g/dl (32-36); Mean Corpuscular Hemoglobin 24.5 pg (26-34); Mean Corpuscular Volume 80.5 fl (80-100); Mean Platelet Volume 9.1 fl (7.4-10.4); Platelet Count Result 404 k/mm3 (150-375); Red Blood Count 2.82 M/mm3 (4.6-6.20); Red Cell Distribution Width 14.6 % (11.5-14.5); White Blood Count 9.1 K/mm3 (4.5-10.0)
[2021-11-27 05:40] LABS: Anion Gap 5 mmol/L (8-16); Blood Urea Nitrogen 23 mg/dL (9-20); Calcium 8.1 mg/dL (8.4-10.2); Carbon Dioxide 29 mmol/L (22-30); Chloride 98 mmol/L (98-107); Estimated CRCL calculation 101 ml/min; Estimated Glomerular Filt Rate > 60; Glucose 145 mg/dL (65-110); Potassium 3.8 mmol/L (3.4-5.0); Sodium 132 mmol/L (137-145)
[2021-11-27 05:46] LABS: Hemoglobin 6.9 g/dL (14.0-18.0)
[2021-11-27] MEDS: KETOROLAC 30 MG/ML VIAL (*BKC) IV PUSH (06:04)
[2021-11-27 06:16] LABS: Glucose Point of Care 142 mg/dl (65-105)
[2021-11-27 08:32] LABS: Glucose Point of Care 201 mg/dl (65-105)
[2021-11-27] MEDS: INSULIN ASPART (*BKC) 100 UNITS/ML SUB-Q ×2 (09:18→12:04)
[2021-11-27] MEDS: ROSUVASTATIN 10 MG TABLET PO (09:20)
[2021-11-27 09:21] LABS: Hematocrit 23.7 % (42.0-52.0)
--- NOTE | 2021-11-27 09:36 | PM.PNGS ---
Progress Note: A&P Assessment and Plan (1) Adenocarcinoma of cecum: Code(s): C18.0 - Malignant neoplasm of cecum Status: Acute Assessment and Plan: H/H low this am, will give 1 u PRBC, dc Toradol, ADAT, encourage OOB/IS (2) Diabetes: Qualifiers: Diabetes mellitus type: type 1 Diabetes mellitus complication status: without complication Qualified Code(s): E10.9 - Type 1 diabetes mellitus without complications Code(s): E11.9 - Type 2 diabetes mellitus without complications Status: Acute Assessment and Plan: stable, appreciate medicine management Subjective Subjective Date/Time Seen: 11/27/21 09:36 feels better today, has been up and ambulating, denies any SOB, dizziness, etc, reports pain better Review of Systems Review of Systems: All systems reviewed & are unremarkable except as noted in HPI and below Exam Const: General: cooperative, comfortable and no acute distress Orientation/consciousness: patient oriented x3 Resp: Auscultation: clear to auscultation bilaterally Cardio: Rate: regular rate Rhythm: regular rhythm GI: Inspection: normal to inspection, distended and incision GI Palp: Yes abdominal tenderness and Yes Soft to palpation Objective Data Vital Signs Vital Signs: Vital Signs - 24 hr 11/26/21 10:04 11/26/21 14:34 11/26/21 22:43 Temperature 37.2 C 36.6 C 36.2 C L Pulse Rate 112 H 90 109 H Respiratory Rate 20 18 20 Blood Pressure 124/68 132/76 148/89 H Pulse Oximetry 95 98 98 11/27/21 02:40 11/27/21 06:45 11/27/21 08:00 Temperature 36.3 C L 36.2 C L 36.8 C Pulse Rate 107 H 100 88 Respiratory Rate 20 21 H 20 Blood Pressure 111/51 L 113/58 L 118/59 L Pulse Oximetry 98 100 100 Intake/Output Intake/Output: Intake & Output 11/24/21 11/25/21 11/26/21 11/27/21 23:59 23:59 23:59 23:59 Intake Total 500 3640 2040 Output Total 400 300 Balance 100 3340 2040 Meds/Results Medications: Active Medications Generic Name Dose Route Start Last Admin Trade Name Freq PRN Reason Stop Dose Admin Acetaminophen 1,000 mg 11/25/21 17:28 Acetaminophen 500 Mg Tablet PO Q6H PRN Mild Pain (1-3) or Fever Albuterol 2 puff 11/25/21 17:28 Albuterol Sulfate (*Sp) Aerosol 1 Puff INHALATION PRN PRN Shortness Of Breath Dextrose 12.5 gm 11/25/21 23:11 Dextrose 50% 25 Gm/50 Ml Syringe IV PUSH PRN PRN Hypoglycemia Protocol Enoxaparin Sodium 40 mg 11/26/21 09:00 11/27/21 09:35 Enoxaparin 40 Mg/0.4 Ml Syringe SUB-Q Not Given DAILY KAREY Glucagon 1 mg 11/25/21 23:11 Glucagon For Inj 1 Mg Vial IM PRN PRN Hypoglycemia Protocol Glucose 15 gm 11/25/21 23:11 Glucose Oral Gel 15 Gm Of Glucse In 37.5 Gm Tube PO PRN PRN Hypoglycemia Protocol Hydromorphone HCl 1 mg 11/25/21 17:28 11/27/21 09:23 Hydromorphone Hcl Inj (*Crx) 1 Mg/Ml Syr IV PUSH 1 mg Q2H PRN Administration Pain Rated 7-10 Hydromorphone HCl 0.5 mg 11/25/21 17:28 Hydromorphone Hcl Inj (*Crx) 1 Mg/Ml Syr IV PUSH Q2H PRN Pain Rated 4-6 Lactated Ringer's 1,000 mls @ 75 mls/hr 11/25/21 17:28 11/27/21 04:02 Lr - Lactated Ringers Iv IV CONT 75 mls/hr .[id number] KAREY Administration Dextrose 1,000 mls @ 100 mls/hr 11/25/21 23:11 Dextrose 5% 1,000 Ml IVPB PRN PRN Hypoglycemia Protocol Sodium Chloride 250 mls @ 30 mls/hr 11/27/21 07:50 Normal Saline Iv IV CONT 11/27/21 16:09 .Q8H20M STA Insulin Aspart 4 - 8 units 11/26/21 17:00 11/27/21 09:18 Insulin Aspart (*Bkc) 100 Units/Ml SUB-Q 4 units TIDWM KAREY Administration Protocol Insulin Glargine 18 units 11/26/21 21:00 11/26/21 21:13 Insulin Glargine (*Bkc) 100 Units/Ml SUB-Q 18 units HS KAREY Administration Ketorolac Tromethamine 30 mg 08/13/22 12:00 11/27/21 06:04 Ketorolac 30 Mg/Ml Vial (*Bk) IV PUSH 30 mg Q6H KAREY Administration Melatonin
[2021-11-27] MEDS: oxyCODONE HCL (*CRX) 5 MG TAB IR 10 MG PO ×3 (11:36→21:17)
[2021-11-27 11:51] LABS: Glucose Point of Care 214 mg/dl (65-105)
[2021-11-27] MEDS: SODIUM CHLORIDE 0.9% IV 250 ML 30 ML IV CONT (11:52)
--- NOTE | 2021-11-27 13:36 | PM.IMPN ---
Progress Note: A&P Assessment and Plan (1) Adenocarcinoma of cecum: Code(s): C18.0 - Malignant neoplasm of cecum Status: Acute Assessment and Plan: Postoperative day 2 status post right hemicolectomy with [id number] ileocolic anastomosis. Wound care, pain control, and DVT prophylaxis deferred to General surgery Low-fiber diet Will discontinue IV fluids at this time as patient is tolerating his diet. (2) Acute anemia: Code(s): D64.9 - Anemia, unspecified Status: Acute Assessment and Plan: Hemoglobin prior to presentation was 12.3 Decline in hemoglobin postoperatively to 6.9 this morning Suspect secondary to surgery Transfuse 1 unit packed RBCs Recheck H&H 1 hour following completion of transfusion and continue to monitor q.6h NSAIDs and Lovenox discontinued. (3) Insulin dependent type 2 diabetes mellitus: Code(s): E11.9 - Type 2 diabetes mellitus without complications; Z79.4 - long term (current) use of insulin Status: Acute Assessment and Plan: A1c is 9.4. Blood sugars have been elevated above target. 145-214 today Continue accu-Cheks, high dose sliding scale insulin, and hypoglycemic protocol. Lantus to 18 untis qHS Monitor glucose trends Consider addition of scheduled insulin with meals if remaining elevated (4) Tobacco abuse: Code(s): Z72.0 - Tobacco use Status: Acute Assessment and Plan: Smokes 1 pack per day Smoking cessation is encouraged. He declined the need for nicotine patch Plan Subjective Date/time seen: 11/27/21 13:36 Interval history: Date of service: 11/26/2021 Ankitcolton Kemp is a 56-year-old male with a history of type 2 diabetes mellitus, hyperlipidemia, asthma, and adenocarcinoma of cecum s/p laparoscopic right hemicolectomy with ileocolic anastomosis. He is feeling better today. He reports 5/10 abdominal discomfort and describes ?gurgling? in his stomach. He is passing flatus and did have a very small amount of loose stool today. He denies dark or tarry stools as well as bright red blood per rectum, however he does report that today when he had a small stool, he felt that it might have been ?a scab or a small clot of blood. Denies hematemesis. Denies hematuria. He does have bilateral shoulder pain which she states has bothered him since surgery in attributes to gas. This is better today. He denies nausea, vomiting, fever, chills, dizziness, lightheadedness. He has been up and walking and feels steady on his feet. He is tolerating his diet Review of Systems Review of Systems: All systems reviewed & are unremarkable except as noted in HPI and below Exam Narrative: General: Well-nourished, well-appearing 56-year-old male, sitting up in bed, comfortable, NARD Neuro: awake, alert and oriented x4, speech clear, no focal neuro deficits noted HEENMT: normocephalic, atraumatic, EOMI, sclerae anicteric, moist oral mucosa Respiratory: clear to auscultation bilaterally, nonlabored breathing Cardio: regular rate, regular rhythm with S1-S2 Abdomen: Mildly distended, normoactive bowel sounds, soft, nontender to palpation, no rigidity or guarding Extremities: no edema, erythema, or tenderness to palpation, DP pulses 2+ bilaterally Skin: no rashes or lesions, warm and dry Psych: appropriate mood and affect, judgment and insight intact Objective Data Vital Signs Vital Signs: Vital Signs - 24 hr 11/26/21 14:34 11/26/21 22:43 11/27/21 02:40 Temperature 97.9 F 97.2 F L 97.4 F L Pulse Rate 90 109 H 107 H Respiratory Rate 18 20 20 Blood Pressure 132/76 148/89 H 111/51 L Pulse Oximetry 98 98 98 11/27/21 06:45 11/27/21 08:00 11/27/21 11:44 Temperature 97.2 F L 98.2 F 98.5 F Pulse Rate 100 88 97 Respiratory Rate 21 H 20 18 Blood Pressure 113/58 L 118/59 L 123/62 Pulse Oximetry 100 100 97 11/27/21 12:08 11/27/21 12:21 Temperature 97.5 F L 97.5 F L Pulse Rate 100 93 Respirat
[2021-11-27 17:15] LABS: Hematocrit 29.9 % (42.0-52.0); Hemoglobin 9.2 g/dL (14.0-18.0)
[2021-11-27 17:33] LABS: Glucose Point of Care 170 mg/dl (65-105)
[2021-11-27] MEDS: INSULIN GLARGINE (*BKC) 100 UNITS/ML 18 UNITS SUB-Q (21:41)
[2021-11-27 21:50] LABS: Glucose Point of Care 186 mg/dl (65-105)
[2021-11-27] MEDS: oxyCODONE HCL (*CRX) 5 MG TAB IR PO (23:17)
[2021-11-28 00:38] LABS: Hematocrit 26.9 % (42.0-52.0); Hemoglobin 8.3 g/dL (14.0-18.0)
[2021-11-28 00:47] VITALS: BP 131/66; PULSE 90; RESP 12; TEMP 37.1; O2SAT 97
[2021-11-28] MEDS: oxyCODONE HCL (*CRX) 5 MG TAB IR PO ×2 (03:57→08:04)
[2021-11-28 04:59] VITALS: BP 133/82; PULSE 93; RESP 20; TEMP 36.6; O2SAT 96
[2021-11-28 05:24] LABS: Hematocrit 31.5 % (42.0-52.0); Hemoglobin 9.6 g/dL (14.0-18.0); Mean Corpuscular HGB Conc 30.5 g/dl (32-36); Mean Corpuscular Hemoglobin 24.9 pg (26-34); Mean Corpuscular Volume 81.6 fl (80-100); Mean Platelet Volume 8.6 fl (7.4-10.4); Platelet Count Result 429 k/mm3 (150-375); Red Blood Count 3.86 M/mm3 (4.6-6.20); Red Cell Distribution Width 14.7 % (11.5-14.5); White Blood Count 9.5 K/mm3 (4.5-10.0)
[2021-11-28 05:46] LABS: Alanine Aminotransferase 15 U/L (6-50); Alkaline Phosphatase 90 U/L (38-126); Anion Gap 10 mmol/L (8-16); Aspartate Amino Transferase 26 U/L (17-59); Bilirubin,Total 0.5 mg/dL (0.2-1.3); Blood Urea Nitrogen 11 mg/dL (9-20); Calcium 8.8 mg/dL (8.4-10.2); Carbon Dioxide 27 mmol/L (22-30); Chloride 99 mmol/L (98-107); Estimated CRCL calculation 101 ml/min; Estimated Glomerular Filt Rate > 60; Glucose 195 mg/dL (65-110); Potassium 4.3 mmol/L (3.4-5.0); Sodium 136 mmol/L (137-145)
[2021-11-28 07:36] LABS: Glucose Point of Care 194 mg/dl (65-105)
[2021-11-28] MEDS: ROSUVASTATIN 10 MG TABLET PO (08:04)
--- NOTE | 2021-11-28 10:32 | PM.IMPN ---
Progress Note: A&P Assessment and Plan (1) Adenocarcinoma of cecum: Code(s): C18.0 - Malignant neoplasm of cecum Status: Acute Assessment and Plan: Postoperative day 2 status post right hemicolectomy with [id number] ileocolic anastomosis. Wound care, pain control, and DVT prophylaxis deferred to General surgery Low-fiber diet (2) Acute anemia: Code(s): D64.9 - Anemia, unspecified Status: Acute Assessment and Plan: Hemoglobin prior to presentation was 12.3 Decline in hemoglobin postoperatively to 6.9 on 11/27 Transfused 1 unit packed RBCs H&H stabilized following transfusion. Hemoglobin 9.6 this morning NSAIDs and Lovenox discontinued. Recheck this afternoon to ensure remaining stable Would recommend outpatient H&H 1 week following discharge (3) Insulin dependent type 2 diabetes mellitus: Code(s): E11.9 - Type 2 diabetes mellitus without complications; Z79.4 - assisted (current) use of insulin Status: Acute Assessment and Plan: A1c is 9.4. Blood sugars have been elevated above target during admission Continue accu-Cheks, high dose sliding scale insulin, and hypoglycemic protocol. Lantus increased to 20 units qHS Monitor glucose trends (4) Tobacco abuse: Code(s): Z72.0 - Tobacco use Status: Acute Assessment and Plan: Smokes 1 pack per day Smoking cessation is encouraged. He declined the need for nicotine patch Plan Subjective Date/time seen: 11/28/21 10:32 Interval history: Date of service: 11/28/2021 Ankit Doreen Kemp is a 56-year-old male with a history of type 2 diabetes mellitus, hyperlipidemia, asthma, and adenocarcinoma of cecum s/p laparoscopic right hemicolectomy with ileocolic anastomosis. He feels well today. His abdominal pain has improved. Currently describes 2-3/10 abdominal discomfort. He has been up and walking the halls for most of the morning and is tolerating this well. Denies dizziness, lightheadedness, weakness. He previously complained of gas pains throughout his entire abdomen up to his shoulder, but he states this is completely resolved today. He denies nausea or vomiting. He is tolerating a solid diet. He had a loose stool this morning that was light brown in color. Denies blood in his stool. No urinary symptoms. No shortness breath, cough, chest pain. He is very eager to return home. He has already arranged for someone to stay with him for couple of days should he need any assistance. Review of Systems Review of Systems: All systems reviewed & are unremarkable except as noted in HPI and below Exam Narrative: General: Well-nourished, well-appearing 56-year-old male, standing up near the window, comfortable, NARD Neuro: awake, alert and oriented x4, speech clear, no focal neuro deficits noted HEENMT: normocephalic, atraumatic, EOMI, sclerae anicteric, moist oral mucosa Respiratory: clear to auscultation bilaterally, nonlabored breathing Cardio: regular rate, regular rhythm with S1-S2 Abdomen: Mildly distended, normoactive bowel sounds, soft, nontender to palpation, surgical incisions noted on abdomen Extremities: no edema, erythema, or tenderness to palpation Skin: no rashes or lesions, warm and dry Psych: appropriate mood and affect, judgment and insight intact Objective Data Vital Signs Vital Signs: Vital Signs - 24 hr 11/27/21 11:44 11/27/21 12:08 11/27/21 12:21 Temperature 98.5 F 97.5 F L 97.5 F L Pulse Rate 97 100 93 Respiratory Rate 18 20 18 Blood Pressure 123/62 127/55 L 120/55 L Pulse Oximetry 97 96 96 11/27/21 15:20 11/27/21 21:32 11/28/21 00:47 Temperature 98.2 F 98.1 F 98.8 F Pulse Rate 72 86 90 Respiratory Rate 16 16 12 Blood Pressure 115/58 L 125/60 131/66 Pulse Oximetry 100 97 97 11/28/21 04:59 Temperature 98 F Pulse Rate 93 Respiratory Rate 20 Blood Pressure 133/82 Pulse Oximetry 96 Intake/Output Intake/Output: Intake & Ou
[2021-11-28 10:40] VITALS: BP 130/80; PULSE 89; RESP 16; TEMP 36.1; O2SAT 97
--- NOTE | 2021-11-28 11:37 | PM.DS ---
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 Garcia Pathology pending on discharge (2) Insulin dependent type 2 diabetes mellitus: Code(s): E11.9 - Type 2 diabetes mellitus without complications; Z79.4 - intermodal truck driver (current) use of insulin Status: Acute Assessment and Plan: Managed by the hospitalist. He was treated with a sliding scale insulin and Lantus at night while hospitalized. Hemoglobin A1c was checked after surgery and was high at 9.4. Follow-up with PCP after discharge for further management of diabetes. (3) Acute anemia: Code(s): D64.9 - Anemia, unspecified Status: Acute (4) Tobacco abuse: Code(s): Z72.0 - Tobacco use Status: Acute Assessment and Plan: Encouraged cessation. Follow-up with PCP for further recommendations. DS: Summary Hospital Course Reason for hospitalization: This is a 56-year-old man who was referred to our office as an outpatient with adenocarcinoma of the cecum. He was experiencing lower abdominal pain and had a CT scan of the abdomen and pelvis done at an outlying facility which showed evidence of a mass in the cecum. He then underwent colonoscopy by Dr. Perry on 11/08/2021. A mass was identified and biopsied and these biopsies showed evidence of adenocarcinoma. He had no evidence of distant metastases on the CT. He then presented for a laparoscopic right hemicolectomy with [id number] ileocolic anastomosis, da Sharee assisted, by Dr. Garcia on 11/25/2021. Hospital Course: He was admitted postoperatively and hospitalist was consulted for postoperative medical management. Labs were monitored following surgery and he was started on a liquid diet. Bowel function returned on postop day 2. He was found to have acute anemia postoperatively. Preop hemoglobin was 12.3, which dropped to 9.0 on postop day 1 and down further to 6.9 on postop day 2. He was then transfused with 1 unit of packed red blood cells. Lovenox was put on hold. H&H was monitored q.6 hours at that point and has remained stable. His hemoglobin is stable this morning at 9.6. No signs of active bleeding. Still hemodynamically stable. His diet has been slowly advanced to a low-fiber diet. He is tolerating this well. He has had adequate pain control and is currently only requiring oral narcotics for incisional pain. Patient stable for discharge today. We will plan to repeat the H&H in 1 week to re-evaluate. Time spent discussing smoking cessation with patient: 3 to 10 minutes Status at Discharge Functional status at discharge: uses cane/walker Overall status at discharge: patient is progressing back to baseline Time Spent with Patient Time attestation: Total time spent providing and/or coordinating discharge services: Time spent: Less than 30 minutes Exam Const: General: comfortable, no acute distress and alert Orientation/consciousness: patient oriented x3 Resp: Effort & Inspection: normal respiratory effort Auscultation: clear to auscultation bilaterally Cardio: Rate: regular rate Rhythm: regular rhythm GI: Inspection: non-distended and incision (dry and intact) GI Palp: Yes Soft to palpation, Yes Tenderness to palpation present (GI) (incisional) and No Guarding due to palpation present (GI) Auscultation: normal bowel sounds Neuro: General: moves all extremities and no focal motor deficits Extrem: General: no calf tenderness and no edema Psych: Mental Status: mental status grossly normal Insight: Good insight present (Psych) DS: Data Data Completed and Pending Pending studies at discharge: Pending
== END 2021-11-28 12:00 | disposition home or self-care (01) | DRG 330 ==
LOC: ANH2MED 17:31
PROVIDERS: Physician Assistant; Surgery; Admitting Provider Surgery; PCP Internal Medicine; Visit Provider Nurse Practitioner Family
PROC: 0DTF4ZZ Resection of Right Large Intestine, Percutaneous Endoscopic Approach (ICD-10-PCS; principal; 2021-11-25 12:00)
DX: C18.0 Malignant neoplasm of cecum (principal); D62 Acute posthemorrhagic anemia; E10.8 Type 1 diabetes mellitus with unspecified complications; G89.29 Other chronic pain; J45.909 Unspecified asthma, uncomplicated; F17.210 Nicotine dependence, cigarettes, uncomplicated; Z79.4 Long term (current) use of insulin; Z90.49 Acquired absence of other specified parts of digestive tract
CPT/HCPCS: 36415; 36430; 80048; 80053; 80076; 82948; 83036; 83735; 84132; 85014; 85018; 85025; 85027; 86850; 86900; 86901; 86920; 88309; A9270; C9290; J0690; J1100; J1170; J1650; J1815; J1885; J2250; J2704; J3010; J7030; J7050; J7120; P9016

== ENCOUNTER 2021-12-21 09:54 | Outpatient (CLI) | payer OTHER, SELFPAY ==
[2021-12-21 10:12] LABS: Hemoglobin 12.5 g/dL (14.0-18.0); Mean Corpuscular HGB Conc 30.5 g/dl (32-36); Mean Corpuscular Hemoglobin 25.2 pg (26-34); Mean Corpuscular Volume 82.5 fl (80-100); Mean Platelet Volume 8.9 fl (7.4-10.4); Platelet Count Result 382 k/mm3 (150-375); Red Blood Count 4.97 M/mm3 (4.6-6.20); Red Cell Distribution Width 16.5 % (11.5-14.5); White Blood Count 7.8 K/mm3 (4.5-10.0)
[2021-12-21 17:03] LABS: Anion Gap 10 mmol/L (8-16); Blood Urea Nitrogen 14 mg/dL (9-20); Calcium 9.4 mg/dL (8.4-10.2); Carbon Dioxide 25 mmol/L (22-30); Chloride 101 mmol/L (98-107); Estimated Glomerular Filt Rate > 60; Glucose 207 mg/dL (65-110); Iron 53 ug/dL (49-181); Potassium 4.7 mmol/L (3.4-5.0); Sodium 136 mmol/L (137-145)
[2021-12-21 17:09] LABS: Percent Iron Saturation 15 % (20-50)
[2021-12-21 17:31] LABS: Carcinoembryonic Antigen 10.2 ng/mL (0.0-3.0)
== END 2021-12-21 09:55 | disposition home or self-care (01) ==
LOC: ANHLAB 09:56
PROVIDERS: PCP Internal Medicine; Visit Provider Internal Medicine Hematology & Oncology
DX: C18.9 Malignant neoplasm of colon, unspecified (principal); D64.9 Anemia, unspecified
CPT/HCPCS: 36415; 80048; 82378; 82607; 82728; 83540; 83550; 85027

== ENCOUNTER → 2022-12-14 08:43 | Outpatient (CLI) | payer OTHER, SELFPAY ==
--- NOTE | ~2022-12-14 | CT_ITS ---
Clinical Indication: Colon cancer CT Scan of the Chest, Abdomen, and Pelvis without Contrast: Technique: Contiguous sections were acquired throughout the chest, abdomen, and pelvis without IV con trast administration. Dose reduction technique was used on this scan by utilizing automated exposure control and iterative reconstruction technique. The dose-length product (DLP) was 1158.73 mGy-cm. COMPARISON: 06/08/2012 Findings: There is no evidence of any significant mediastinal, hilar or axillary lymphadenopathy. Small calcifi ed left hilar lymph nodes are noted. Coronary artery calcifications are present. There is no evidence of pleural or pericardial effusion. Suggestion of extremely subtle scattered groundglass opacities in the upper lobes, right worse than l eft. No suspicious pulmonary nodule seen. The liver, spleen, pancreas, adrenals and kidneys are within normal limits. Cholecystectomy clips are present. There are atherosclerotic calcifications of the aorta. No lymphadenopathy. No bowel obstruction or bowel wall thickening. There is evidence of prior partial right colectomy, wi th enterocolonic anastomosis in place. Urinary bladder is unremarkable. Prostate gland and seminal vesicles are unremarkable. Impression: No evidence for active malignancy or metastatic disease. Prior partial right colectomy. Suspected very subtle groundglass opacities in the upper lobes. Correlate for infectious/inflammatory process. Reviewed, dictated and finalized at location . Impression: No evidence for active malignancy or metastatic disease. Prior partial right colectomy. Suspected very subtle groundglass opacities in the upper lobes. Correlate for i nfectious/inflammatory process.
== END ==
PROVIDERS: PCP Internal Medicine; Visit Provider Internal Medicine
DX: C18.9 Malignant neoplasm of colon, unspecified (principal)
CPT/HCPCS: 71250; 74176

== ENCOUNTER 2024-04-28 12:43 | Outpatient (CLI) | payer OTHER, SELFPAY ==
--- NOTE | ~2024-04-28 | CT_ITS ---
EXAMINATION: CT abdomen pelvis w con DATE: 04/28/2024 13:10 INDICATION: Abdominal pain. TECHNIQUE: Computed tomography (CT) of the abdomen and pelvis was performed with 100 mL Omnipaque 350 intravenous contrast. Automated exposure control and iterative reconstruction technique were employe d. The dose-length product was 463.86 mGy-cm. COMPARISON: CT abdomen and pelvis 12/14/2022 FINDINGS: The visualized portions of the lung bases demonstrate mild atelectasis. No pleural effusion . The heart size is normal. No pericardial effusion. The liver and spleen are normal. There are etnorio es of cholecystectomy. The pancreas, adrenal glands, and right kidney are normal. There is a 5 mm cys t in left kidney. There are no dilated loops of bowel. There is an ileocolic anastomosis. There are n o pathologically enlarged lymph nodes. There is no free intraperitoneal fluid. There is mild thoracic and lumbar spondylosis. IMPRESSION: 1. No etiology for the patient's symptoms. Reviewed, dictated and finalized at location A. [employer]
[2024-04-28 13:01] LABS: Estimated Glomerular Filt Rate > 60
== END 2024-04-28 12:44 | disposition home or self-care (01) ==
PROVIDERS: PCP Internal Medicine; Visit Provider Internal Medicine
DX: R10.9 Unspecified abdominal pain (principal)
CPT/HCPCS: 74177; Q9967